=== PATIENT | female | born 1955 | race Caucasian/White ===

== ENCOUNTER 2017-11-13 15:56 | Emergency (ER) | payer OTHER ==
--- OUTSIDE RECORDS SUMMARY | 2017-11-13 15:59 | XMS REPORT | Clinical Summary ---
:1955 Author Organization [facility] Address [address] [place] [address] Care Team Providers Name Role Phone Asked, No Pcp Primary Care Provider Unavailable Allergies Active Allergy Reactions Severity Noted Date Comments Codeine Hives 09/08/2017 Sulfa (Sulfonamide Antibiotics) Hives 09/08/2017 Current Medications Prescription Sig. Disp. Refills Start Date End Date Status albuterol (PROAIR Inhale 2 puffs Active HFA,PROVENTIL every 4 (four) HFA,VENTOLIN HFA) hours as needed 90 mcg/actuation for wheezing. inhaler azelastine-fluticas 1 spray by Each Active one (DYMISTA) Nare route 2 (two) 137-50 mcg/spray times a day. spray,non-aerosol fluticasone-vilante Inhale 1 Active rol (BREO ELLIPTA) inhalations daily. 100-25 mcg/dose blister with device powder for inhalation apixaban (ELIQUIS) Take 5 mg by mouth Active 5 mg tablet 2 (two) times a day. DULoxetine Take 60 mg by Active (CYMBALTA) 60 MG mouth 2 (two) capsule times a day. predniSONE Take 10 mg by Active (DELTASONE) 10 mg mouth 2 (two) tablet times a day. alendronate Take 70 mg by Active (FOSAMAX) 70 MG mouth every 7 tablet days. Take in the morning with a full glass of water on an empty stomach, do NOT take anything else by mouth or lie down for the next 30 min. triamterene-hydroch Take 1 tablet by Active lorothiazid mouth daily. (MAXZIDE-25) 37.5-25 mg per tablet doxepin (SINEquan) Take 10 mg by Active 10 MG capsule mouth nightly. promethazine Take by mouth 4 Active (PHENERGAN) 6.25 (four) times a day mg/5 mL syrup as needed for nausea or vomiting. atorvastatin Take 10 mg by Active (LIPITOR) 10 MG mouth daily. tablet metFORMIN Take 500 mg by Active (GLUCOPHAGE) 500 mg mouth 2 (two) tablet times a day with meals. trimethoprim Take 100 mg by Active (TRIMPEX) 100 mg mouth daily. tablet sitaGLIPtin Take 25 mg by Active (JANUVIA) 25 MG mouth daily. tablet umeclidinium Inhale 62.5 mcg Active (INCRUSE ELLIPTA) daily. 62.5 mcg/actuation blister with device amIODarone Take 1 tablet (200 60 tablet 0 09/09/2017 10/09/2017 (PACERONE) 200 MG mg total) by mouth tablet 2 (two) times a day for 30 days. Active Problems Not on file Encounters Date Type Specialty Care Team Description 09/09/2017 Hospital Encounter Procedural Josesito Bashir Atypical atrial Cardiology MD jessica Baker 09/09/2017 Documentation Procedural [facility], Cardiology BILLIE Allen 09/09/2017 Anesthesia Event Procedural Myranda Andujar Cardiology 09/09/2017 Procedure Pass Procedural Cardiology 09/09/2017 Surgery Procedural Josesito Bashir Ep ablation flubren Cardiology MD Olivia [[id number] (CPT)] 09/07/2017 Lab Lab Jacob Boo Atrial fibrillation, unspecified type ( Primary Dx); MD Erika Long-term (current) use of anticoagulants; Pre-operative laboratory examination after 11/12/2016 Social History Tobacco Use Types Packs/Day Years Used Date Never Smoker Smokeless Tobacco: Never Used Alcohol Use Drinks/Week oz/Week Comments No Sex Assigned at Date Recorded Not on file Last Filed Vital Signs Vital Sign Reading Time Taken Blood Pressure 139/73 09/09/2017 3:30 PM CDT Pulse 100 09/09/2017 3:30 PM CDT Temperature 36.7 C (98 F) 09/09/2017 11:45 AM CDT Respiratory Rate 27 09/09/2017 3:30 PM CDT Oxygen Saturation 100% 09/09/2017 3:30 PM CDT Inhaled Oxygen Concentration - - Weight 75.3 kg (166 lb) 09/09/2017 6:32 AM CDT Height 162.6 cm (5' 4") 09/09/2017 6:32 AM CDT Body Mass Index 28.49 09/09/2017 6:32 AM CDT Plan of Treatment Health Maintenance Due Date Last Done Comments CERVICAL CANCER SCREENING 1974 BREAST CANCER SCREENING 08/23/2003 COLON CANCER SCREENING 08/23/2003 SHINGRIX VACCINE (#1) 08/23/2003 ZOSTER VACCINE 2013 INFLUENZA VACCINE 09/09/2017 Procedures Procedure Name Priority Date/Time Associated Comments Diagnosis ECG 12-LEAD Routine 09/09/2017 1:05 Results for this PM CDT procedure are in the results section. POC GLUCOSE Routine 09/09/2017 11:16 Results for this AM CDT procedure are in the results section. EP ABLATION FLUTTER Routine 09/09/2017 10:26 Atypical atrial Results for this AM CDT flutter procedure are in the results section. TYPE AND SCREEN STAT 09/09/2017 7:30 Results for this AM CDT procedure are in the results section. POC GLUCOSE Routine 09/09/2017 6:41 Results for this AM CDT procedure are in the results section. ECG PRE/POST OP STAT 09/09/2017 6:37 Results for this AM CDT procedure are in the results section. ZZESTIMATED GFR STAT 09/07/2017 2:45 Results for this PM CDT procedure are in the results section. MAGNESIUM LEVEL STAT 09/07/2017 2:45 Atrial Results for this PM CDT fibrillation, procedure are in unspecified type the results Long-term (current) section. use of anticoagulants Pre-operative laboratory examination HC COMPLETE BLD COUNT STAT 09/07/2017 2:45 Atrial Results for this W/AUTO DIFF PM CDT fibrillation, procedure are in unspecified type the results Long-term (current) section. use of anticoagulants Pre-operative laboratory examination COMPREHENSIVE METABOLIC STAT 09/07/2017 2:45 Atrial Results for this PANEL PM CDT fibrillation, procedure are in unspecified type the results Long-term (current) section. use of anticoagulants Pre-operative laboratory examination PROTHROMBIN TIME WITH STAT 09/07/2017 2:45 Atrial Results for this INR PM CDT fibrillation, procedure are in unspecified type the results Long-term (current) section. use of anticoagulants Pre-operative laboratory examination PARTIAL THROMBOPLASTIN STAT 09/07/2017 2:45 Atrial Results for this TIME (PTT) PM CDT fibrillation, procedure are in unspecified type the results Long-term (current) section. use of anticoagulants Pre-operative laboratory examination after 11/12/2016 Results ECG 12 lead (09/09/2017 1:05 PM) Ventricular rate 91 [facility] Atrial rate 91 [facility] IA interval 130 [facility] QRSD interval 76 [facility] QT interval 344 [facility] QTC interval 423 [facility] P axis 1 47 [facility] QRS axis 1 35 [facility] T wave axis 130 [facility] EKG impression Normal sinus rhythm-Possible Left atrial enlargement-ST & T wave abnormality, consider anterolateral ischemia-Abnormal ECG-In automated comparison with ECG of 09-SEP-2017 06:37,-Sinus rhythm has rep [facility] MUSE laced Atrial flutter-Vent. rate has decreased BY97 BPM-Questionable change in QRS duration- Performing Organization Address [facility] [place] [facility] Phone Number [facility] MUSE [address] [place] [address] POC glucose (09/09/2017 11:16 AM)Only the most recent of2 resultswithin the time period is included. POC glucose 113 (H) 65 - 99 mg/dL [facility] DEPARTMENT OF PATHOLOGY Comment: AND GENOMIC MEDICINE [facility] Notified RN Meter ID: [id number] Embosser Operator: Kateh Marte Performing Organization Address City/[facility]/Zipcode Phone Number [facility] DEPARTMENT OF PATHOLOGY AND [address] [place] [address] [facility] Cv electrophysiology procedure (09/09/2017 10:26 AM) Narrative Performed At TITLE OF PROCEDURE: CUPID Ablation of the atrial flutter. PREOPERATIVE DIAGNOSIS: Atrial flutter. 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 PROCEDURES PERFORMED: 1.Monitored anesthesia care. 2.Inferior venacavogram. 3.Empiric ablation of the cavotricuspid isthmus. 4.Three dimensional intracardiac mapping. BRIEF HISTORY AND CLINICAL BACKGROUND: This is a 62-year-old woman who has an episodic history of tachy palpitations, I saw her 48 hours ago in my office, at which time, she had a heart rate of 180 beats per minute.This had the appearance of typical CTI dependent flutter, I recommended at admission, but she declined as she was not overtly symptomatic and stated that she would return for her ablation, which we scheduled for Thursday, just less than 48 hours from her office visit.An echocardiogram performed at that time in my office revealed hyperdynamic ejection fraction, hence I allowed to leave the office and return.She returns now for ablation. Earlier this morning, she was in the [place] [address] preop area and was in atrial flutter at a similar heart rate, but presently, as she comes into the EP lab, she is in sinus rhythm.We will perform an empiric CTI ablation. PROCEDURE: The patient was taken to the EP lab in a fasting nonsedated drug-free state. Informed consent had been obtained and reconfirmed.Monitored anesthesia care was provided.The right groin was prepped and draped in usual sterile fashion. Access to the right femoral vein was achieved.A soft tip J-wire was advanced, but would not pass through the Bird's nest filter in the inferior vena cava. Subsequently, a 5-Maltese sheath was advanced into the proximal femoral vein and through the sheath, a 4-Maltese multipurpose catheter was advanced and placed just distal to the Bird's nest filter and inferior venacavogram was performed showing a tortuous channel through the IVC filter. Consequently, the J-wire was removed and a Glidewire was then advanced through the Bird's nest filter, taking care not to disturb this; over this Glidewire, a medium curve Agilis deflectable tip sheath was advanced.During advancement of the sheath, observation was carefully was made of the Bird's nest filter and it did not budge or move whatsoever; however, it was my judgement given the findings on the venogram that additional catheter placement would be risky in terms of dislodgement of the filter.Consequently, a simplified ablation procedure was planned. Through the Agilis sheath, a flexibility open irrigated radiofrequency ablation catheter was advanced and the ventricular and caval aspect of the CTI were mapped and ablation drag lesions were applied from the ventricular aspect to the caval aspect, moving the ablation catheter, small amount each time when the electrogram underneath the catheter was less than 0.3 mV.The patient's CTI had the appearance of a tall ridge (10-gallon hat type).On the posterior aspect of the peak of the ridge, there was a dense tissue with large electrogram size and it took some time to ablate this. The ablation line was remeasured and there were no areas of electrogram size greater than 0.3 mV.At this point, waiting period was started, the ablation line was reassessed and again from the ventricular to the caval aspect, all ablation sites, which were contagious, had electrogram size less than 0.3 mV. At this point, catheter and sheath were removed under fluoroscopy ensuring that the Bird's nest filter did not move.Hemostasis was applied. COMPLICATIONS: None. FINDINGS: 1.The baseline rhythm was sinus rhythm, but she had had what appears to be typical CTI dependent flutter earlier today and in the office. 2.Successful empiric ablation of the CTI as guided by electrogram size. RECOMMENDATIONS: 1.Discharge to home in 4 hours. 2.Resume oral anticoagulation. 3.Monitor for clinical recurrences. 4.Short term oral amiodarone Performing Organization Address [facility] Phone Number [facility] [address] [place] [address] Type and screen (09/09/2017 7:30 AM) ABO grouping O [facility] DEPARTMENT OF PATHOLOGY AND GENOMIC MEDICINE Rh type NEG [facility] DEPARTMENT OF PATHOLOGY AND GENOMIC MEDICINE Antibody screen (gel) NEG [facility] DEPARTMENT OF PATHOLOGY AND GENOMIC MEDICINE Specimen Blood Performing Organization Address [facility] Phone Number [facility] DEPARTMENT OF PATHOLOGY AND [address] [place] [address] [facility] ECG Pre/Post Op (09/09/2017 6:37 AM) Ventricular rate 188 [facility] Atrial rate 188 [facility] IA interval 88 [facility] QRSD interval 140 [facility] QT interval 232 [facility] QTC interval 410 [facility] P axis 1 264 [facility] QRS axis 1 30 [facility] T wave axis 265 [facility]USE EKG impression Atrial flutter with 2:1 AV [facility] MUSE conduction-Nonspecific intraventricular block-Nonspecific T wave abnormality-Abnormal ECG-No previous ECGs available- Performing Organization Address [facility] Phone Number [facility] [address] [place] [address] Estimated GFR (09/07/2017 2:45 PM) GFR Non Af Amer 50 (A) mL/min/1.73 m2 [facility] DEPARTMENT OF PATHOLOGY AND [facility] GFR Af Amer 61 mL/min/1.73 m2 [facility] DEPARTMENT OF Comment: PATHOLOGY AND GENOMIC Chronic kidney disease: <60 mL/min/1.73m2 MEDICINE Kidney failure: <15 mL/min/1.73m2 The estimated GFR is calculated from the IDMS-traceable Modification of Diet in Renal Disease Equation. The accuracy of the calculation is poor when the creatinine is normal. Calculated values >90 mL/min/1.73m2 are not reported. This equation has not been validated in children (<18 years), women, the elderly (>70 years), or ethnic groups other than Caucasians and Americans. Specimen Plasma specimen Performing Organization Address City/[facility] Phone Number [facility] DEPARTMENT OF PATHOLOGY AND [address] [place] [address] Partial thromboplastin time, activated (09/07/2017 2:45 PM) PTT 30.8 23.0 - 36.0 sec [facility] DEPARTMENT OF PATHOLOGY Comment: AND [facility] PTT therapeutic range for unfractionated heparin is 61.0-112.0 seconds which corresponds to Anti-Xa 0.3-0.7 U/ml. Specimen Blood Performing Organization Address City/[facility] Phone Number [facility] DEPARTMENT OF PATHOLOGY AND [address] [place] [id number] [facility] Prothrombin time with INR (09/07/2017 2:45 PM) Prothrombin time 15.5 (H) 12.0 - 15.0 sec [facility] DEPARTMENT OF PATHOLOGY AND [employer] MEDICINE INR 1.2 [facility] DEPARTMENT OF Comment: PATHOLOGY AND GENOMIC The International Normalized Ratio (INR) is a therapeutic MEDICINE monitoring tool for patients who are stable on oral anticoagulant therapy. An INR of 2.0-3.0 is suggested for deep vein thrombosis/pulmonary embolism. Specimen Blood Performing Organization Address City/[facility] Phone Number [facility] DEPARTMENT OF PATHOLOGY AND [address] [place] [phone] [facility] CBC with platelet and differential (09/07/2017 2:45 PM) WBC 17.38 (H) 4.50 - 11.00 k/uL [facility] DEPARTMENT OF PATHOLOGY AND GENOMIC MEDICINE RBC 5.95 (H) 4.20 - 5.50 m/uL [facility] DEPARTMENT OF PATHOLOGY AND GENOMIC MEDICINE HGB 14.2 12.0 - 16.0 g/dL [facility] DEPARTMENT OF PATHOLOGY AND GENOMIC MEDICINE HCT 48.0 (H) 37.0 - 47.0 % [facility] DEPARTMENT OF PATHOLOGY AND GENOMIC MEDICINE MCV 80.7 (L) 82.0 - 100.0 fL [facility] DEPARTMENT OF PATHOLOGY AND GENOMIC MEDICINE MCH 23.9 (L) 27.0 - 34.0 pg [facility] DEPARTMENT OF PATHOLOGY AND GENOMIC MEDICINE MCHC 29.6 (L) 31.0 - 37.0 g/dL [facility] DEPARTMENT OF PATHOLOGY AND GENOMIC MEDICINE RDW - SD 48.2 37.0 - 55.0 fL [facility] DEPARTMENT OF PATHOLOGY AND GENOMIC MEDICINE MPV 11.5 8.8 - 13.2 fL [facility] DEPARTMENT OF PATHOLOGY AND GENOMIC MEDICINE Platelet count 353 150 - 400 k/uL [facility] DEPARTMENT OF PATHOLOGY AND GENOMIC MEDICINE Nucleated RBC 0.00 /100 WBC [facility] DEPARTMENT OF PATHOLOGY AND GENOMIC MEDICINE Neutrophils 81.7 (H) 39.0 - 69.0 % [facility] DEPARTMENT OF PATHOLOGY AND GENOMIC MEDICINE Lymphocytes 11.4 (L) 25.0 - 45.0 % [facility] DEPARTMENT OF PATHOLOGY AND GENOMIC MEDICINE Monocytes 5.0 0.0 - 10.0 % [facility] DEPARTMENT OF PATHOLOGY AND GENOMIC MEDICINE Eosinophils 0.9 0.0 - 5.0 % [facility] DEPARTMENT OF PATHOLOGY AND GENOMIC MEDICINE Basophils 0.5 0.0 - 1.0 % [facility] DEPARTMENT OF PATHOLOGY AND GENOMIC MEDICINE Immature granulocytes 0.5Comment: 0.0 - 1.0 % [facility] DEPARTMENT OF "Immature PATHOLOGY AND GENOMIC granulocytes" MEDICINE (promyelocytes, myelocytes, metamyelocytes) Specimen Blood Performing Organization Address City/[facility]/Zipcode Phone Number [facility] DEPARTMENT OF PATHOLOGY AND [address] [place] [phone] GENOMIC MEDICINE Magnesium level (09/07/2017 2:45 PM) Magnesium 1.8 1.6 - 2.4 mg/dL [facility] DEPARTMENT OF PATHOLOGY AND GENOMIC MEDICINE Specimen Plasma specimen Performing Organization Address City/[facility] Phone Number [facility] DEPARTMENT OF PATHOLOGY AND [address] [place] [phone] [facility] Comprehensive metabolic panel (09/07/2017 2:45 PM) Sodium 140 135 - 148 mEq/L [facility] DEPARTMENT OF PATHOLOGY AND GENOMIC MEDICINE Potassium 4.8 3.5 - 5.0 mEq/L [facility] DEPARTMENT OF PATHOLOGY AND GENOMIC MEDICINE Chloride 96 (L) 98 - 112 mEq/L [facility] DEPARTMENT OF PATHOLOGY AND GENOMIC MEDICINE CO2 27 24 - 31 mEq/L [facility] DEPARTMENT OF PATHOLOGY AND GENOMIC MEDICINE Anion gap 17@ANIO (H) 7 - 15 mEq/L [facility] DEPARTMENT OF PATHOLOGY AND GENOMIC MEDICINE BUN 29 (H) 8 - 23 mg/dL [facility] DEPARTMENT OF PATHOLOGY AND GENOMIC MEDICINE Creatinine 1.1 (H) 0.5 - 0.9 mg/dL [facility] DEPARTMENT OF PATHOLOGY AND GENOMIC MEDICINE Glucose 181 (H) 65 - 99 mg/dL [facility] DEPARTMENT OF PATHOLOGY AND GENOMIC MEDICINE Calcium 11.1 (H) 8.8 - 10.2 mg/dL [facility] DEPARTMENT OF PATHOLOGY AND GENOMIC MEDICINE Protein 7.8 6.3 - 8.3 g/dL [facility] DEPARTMENT OF Comment: PATHOLOGY AND GENOMIC [place] 4.6-7.0 g/dL MEDICINE 1 week 4.4-7.6 g/dL 7 months-1year5.1-7.3 g/dL 1-2 years5.6-7.5 g/dL >3 years6.0-8.0 g/dL 18-150 6.3-8.3 g/dL Albumin 3.8 3.5 - 5.0 g/dL [facility] DEPARTMENT OF PATHOLOGY AND GENOMIC MEDICINE A/G ratio 1.0 0.7 - 3.8 [facility] DEPARTMENT OF PATHOLOGY AND GENOMIC MEDICINE Alkaline phosphatase 96 35 - 104 U/L [facility] DEPARTMENT OF PATHOLOGY AND GENOMIC MEDICINE AST 19 10 - 35 U/L [facility] DEPARTMENT OF PATHOLOGY AND GENOMIC MEDICINE ALT 20 5 - 50 U/L [facility] DEPARTMENT OF PATHOLOGY AND GENOMIC MEDICINE Total bilirubin 0.4 0.0 - 1.2 mg/dL [facility] DEPARTMENT OF PATHOLOGY AND GENOMIC MEDICINE Specimen Plasma specimen Performing Organization Address City/State/Zipcode Phone Number [facility] DEPARTMENT OF PATHOLOGY AND [address] [place] [address] GENOMIC MEDICINE after 11/12/2016 Insurance Payer Benefit Plan / Group Subscriber ID Type Phone Address MEDICARE MEDICARE PART A AND B xxxxxxxxxx Medicare [place], [place] MEDICAID MEDICAID xxxxxxxxx Medicaid
--- OUTSIDE RECORDS SUMMARY | 2017-11-13 16:00 | XMS REPORT ---
:1955 Author Organization [employer] Care Team Providers Name Role Phone Chase Courtney Provider Role Unavailable Allergies No Known Allergies Problems Problem Type Condition Code Onset Dates Condition Status Problem Atrial fibrillation with RVR I48.91 Active Problem Phlebitis of deep femoral vein, I80.10 Active unspecified laterality Problem S/P insertion of inferior vena Z95.828 Active caval filter Problem Port-a-cath in place Z95.828 Active Problem Colon polyp K63.5 Active Problem Spinal stenosis of lumbosacral M48.07 Active region Problem Chronic obstructive pulmonary J44.9 Active disease Problem History of blood transfusion Z92.89 Active Problem Renal calculus N20.0 Active Problem Abdominal aortic aneurysm I71.4 Active Problem Benign essential hypertension I10 Active Problem Nausea alone R11.0 Active Problem Atrial fibrillation I48.91 Active Problem GERD without esophagitis K21.9 Active Problem Multinodular goiter (nontoxic) E04.2 Active Problem Vitamin D deficiency E55.9 Active Problem intermediate frame tender current use of systemic Z79.52 Active steroids Problem Bipolar disorder F31.9 Active Problem Diabetes mellitus type 2, E11.9 Active uncontrolled, without complications Problem Insomnia G47.00 Active Problem Osteopenia M85.80 Active Problem Splenomegaly R16.1 Active Problem Subclinical hyperthyroidism E05.90 Active Problem Non-pressure chronic ulcer of skin L98.499 Active of other sites with unspecified severity Problem Ventral hernia without obstruction K43.9 Active or gangrene Problem History of CVA (cerebrovascular Z86.73 Active accident) without residual deficits Problem Iron deficiency anemia secondary to D50.0 Active blood loss (chronic) Problem Solitary pulmonary nodule R91.1 Active Problem History of deep vein thrombosis Z86.718 Active Medications Medication Code Code Instructions Start End Status Dosage System Date Date True Metrix [facility] [id number] - True metrix Apr 08, Active as directed Blood Glucose twice a day 2017 Test Results No Known Results Summary Purpose [employer] Submission
--- OUTSIDE RECORDS SUMMARY | 2017-11-13 16:00 | XMS REPORT ---
[...] Problem Vitamin D deficiency E55.9 Active Problem care home current use of systemic Z79.52 Active steroids [...] Start End Status Dosage System Date Date Atorvastatin [facility] [id number] 10 MG Orally Active 1 tablet Calcium Once a day Results No Known Results Summary Purpose Last [employer] Submission
--- OUTSIDE RECORDS SUMMARY | 2017-11-13 16:00 | XMS REPORT ---
[...] Problem Vitamin D deficiency E55.9 Active Problem longterm current use of systemic Z79.52 Active steroids [...] End Status Dosage System Date Date Atorvastatin [facility] [id number] 10 MG Orally Active 1 tablet Calcium Once a day Results No Known Results Summary Purpose [employer] Submission
--- OUTSIDE RECORDS SUMMARY | 2017-11-13 16:00 | XMS REPORT ---
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
--- OUTSIDE RECORDS SUMMARY | 2017-11-13 16:00 | XMS REPORT ---
[...] Problem Vitamin D deficiency E55.9 Active Problem [facility] current use of systemic Z79.52 Active steroids [...] of deep vein thrombosis Z86.718 Active Medications No Known Medications Results No Known Results Summary Purpose [employer] Submission
--- OUTSIDE RECORDS SUMMARY | 2017-11-13 16:00 | XMS REPORT ---
[...] Problem Vitamin D deficiency E55.9 Active Problem [facility] current use of systemic Z79.52 Active steroids [...]
--- OUTSIDE RECORDS SUMMARY | 2017-11-13 16:00 | XMS REPORT ---
:1955 Author Organization e[employer]Works Care Team Providers Name Role Phone Chase Courtney Provider Role Unavailable Allergies No Known Allergies Problems Problem Type Condition Code Onset Dates Condition Status Assessment Atrial fibrillation with RVR I48.91 Active Problem Atrial fibrillation with RVR I48.91 Active [...] Problem Vitamin D deficiency E55.9 Active Problem FPC current use of systemic Z79.52 Active steroids [...] Start End Status Dosage System Date Date Promethazine HCl ND 42133794520 6.25 MG/5ML Active 10 ml as Orally every 6 needed hrs Eliquis ND 32631449424 5 MG Orally Active not defined True Metrix [facility] 50123832506 - True metrix Apr 08, Active as directed Blood Glucose twice a day 2018 Test Lyrica [facility] 86311342935 50 MG Orally Active 1 capsule Twice a day Ambien [facility] 11479022413 5 MG Orally Active 1 tablet at Once a day bedtime Carvedilol [facility] 42830639391 3.125 MG Orally Mar 19, Active as directed take twice a 2017 day Prednisone ND 35946753747 10 MG Orally Active 1 tablet Twice a day Multaq [facility] 65754109817 400 MG Orally Active 1 tablet Twice a day with meals Atorvastatin [facility] 48304201740 10 MG Orally Active 1 tablet Calcium Once a day Ventolin HFA [facility] 81800439525 108 (90 Base) Active 2 puffs as MCG/ACT needed Inhalation every 6 hrs Januvia [facility] 76655581645 25 MG Orally Active not defined Pantoprazole [facility] 99146667460 40 MG Orally Active 1 tablet Sodium Once a day Albuterol [facility] 53314831397 (2.5 MG/3ML) Active 3 ml as Sulfate 0.083% needed Inhalation Three times a day Vitamin D3 [facility] 73000760932 2000 UNIT Active 1 capsule Orally Once a day Duloxetine HCl [facility] 69366423746 60 MG Orally Active 1 capsule Once a day Fosamax [facility] 02385769355 70 MG Orally Active 1 tablet Breo Ellipta [facility] 26845374238 100-25 MCG/INH Active 1 puff Inhalation Once a day Glucophage XR [facility] 12770493405 500 MG Orally Active 1 tablet Twice a day with evening meal Results No Known Results Summary Purpose [employer]Clinical[employer] Submission
--- OUTSIDE RECORDS SUMMARY | 2017-11-13 16:00 | XMS REPORT ---
[...] Problem Vitamin D deficiency E55.9 Active Problem alf current use of systemic Z79.52 Active steroids [...]
--- OUTSIDE RECORDS SUMMARY | 2017-11-13 16:00 | XMS REPORT ---
[...] Vitamin D deficiency E55.9 Active Problem intermediate manager current use of systemic Z79.52 Active steroids [...] vein thrombosis Z86.718 Active Medications Medication Code System Code Instructions Start Date End Date Status Dosage Eliquis [facility] 57968888266 5 MG Orally twice Active 1 tablet daily Results No Known Results Summary Purpose [employer] Submission
[2017-11-13] MEDS ORDERED: HYDROCODONE/APAP 5/325 MG TAB ONE (16:47)
[2017-11-13 16:50] LABS: Absolute Lymphocytes (CBC) 0.5 K/uL (0.7-4.9); Absolute Neutrophil 15.9 K/uL (1.8-8.0); Basophils % 0.1 % (0-1.3); Eosinophils % 0.3 % (0-4.4); Hematocrit 37.7 % (36.0-45.0); Lymphocytes % 2.7 % (15.3-44.8); MCH 24.2 pg (27.0-35.0); MCV 76.6 fL (80-100); MPV 9.9 fL (7.6-11.3); Monocytes % 5.5 % (3.3-12.3); RBC Red Blood Cell Count 4.92 M/uL (3.86-4.86)
--- NOTE | 2017-11-13 16:53 | RAD REPORT ---
EXAM DESCRIPTION: RAD - Ankle Left 3 View - 11/13/2017 4:45 pm CLINICAL HISTORY: SWELLING COMPARISON: No comparisons FINDINGS: Prominent soft tissue swelling is seen along lateral malleolus. Heavy atherosclerosis is e vident. No acute fracture or dislocation suspected.
[2017-11-13 17:09] LABS: Albumin 3.4 g/dL (3.4-5.0); Bilirubin Total 0.6 mg/dL (0.2-1.0); Potassium 3.7 mmol/L (3.5-5.1); Protein, Total 6.7 g/dL (6.4-8.2)
--- NOTE | 2017-11-13 17:41 | RAD REPORT ---
EXAM DESCRIPTION: US - Extremity Venous Uni Ltd - 11/13/2017 5:32 pm CLINICAL HISTORY: SWELLING Leg swelling and edema. COMPARISON: EXT VENOUS UNI LTD dated 04/15/2015 FINDINGS: Left lower extremity venous system was interrogated with Doppler technique. Partial compre ssibility with thrombus is visualized in the common femoral vein, greater saphenous vein and poplitea l vein compatible with SVT and DVT. IMPRESSION: Positive for left lower extremity DVT as detailed. SVT is also present within the greate r saphenous vein.
--- NOTE | 2017-11-13 18:30 | RAD REPORT ---
EXAM DESCRIPTION: US - Lower Extremity Artery Uni Ltd - 11/13/2017 6:22 pm CLINICAL HISTORY: SWELLING Pain COMPARISON: CTANGIO LOWER EXT dated 05/15/2012 FINDINGS: Grayscale, color, power and spectral Doppler assessment of the left lower extremity arteri al system was performed. Triphasic waveforms are seen involving the common femoral artery to the level of the popliteal artery . Posterior tibial artery is biphasic. Dorsalis pedis artery is mildly blunted and monophasic. Mild atherosclerotic plaquing is seen without occlusion or severe stenosis. IMPRESSION: Mild distal left lower extremity peripheral vascular disease noted.
[2017-11-13] MEDS ORDERED: DOXYCYCLINE 100 MG CAP PO ONE (18:37)
[2017-11-13] MEDS ORDERED: CLINDAMYCIN 600MG/D5W 600 MG/50 ML BAG IV ONE (18:37)
--- NOTE | 2017-11-13 19:23 | EDPHYS ---
Physician Documentation [facility] Name: Christa Vidal Age: 62 yrs Sex: Female : 1955 Arrival Date: 11/13/2017 Time: 15:58 Bed 5 Private MD: Chase Courtney ED Physician Domingo Avitia HPI: 11/13 16:17 This 62 yrs old Female presents to ER via Wheelchair with complaints of Feet jmm Swelling. 16:17 The complaints affect the lateral aspect of left calf, left lateral ankle, lateral jmm aspect of left foot, left calf, left Achilles, left heel, medial aspect of left knee, medial aspect of left calf, left medial ankle and medial aspect of left foot. Onset: The symptoms/episode began/occurred gradually, 1 day(s) ago. This is a 62 year old female with a history of AAA, DVT, COPD, DM, that presents to the ED with left lower leg pain and swelling, worsening since last night. Patient states an area of redness behind her left foot has increased in size. Denies injury. . Historical: - Allergies: 16:06 Codeine; aj1 16:06 Sulfa (Sulfonamide Antibiotics); aj1 16:06 Ibuprofen; aj1 - Home Meds: 16:06 Eliquis 5 mg oral tab 1 tab 2 times per day [Active]; amiodarone 200 mg Oral tab 2 aj1 times per day [Active]; albuterol sulfate 2.5 mg /3 mL (0.083 %) Inhl nebu 3 mL 2 times per day [Active]; alendronate sodium-cholecalciferol(vitamin D3) 70 mg Oral once wkly [Active]; atorvastatin 10 mg Oral tab 1 tab once daily [Active]; Breo Ellipta 100-25 mcg/dose inhalation dsdv 1 puff once daily [Active]; duloxetine 60 mg Oral cpDR [Active]; Incruse Ellipta 62.5 mcg/actuation inhalation dsdv 1 puff once daily [Active]; Januvia 25 mg Oral tab daily [Active]; lutein-zeaxanthin Oral [Active]; metformin 500 mg Oral Tb24 once daily [Active]; prednisone 10 mg Oral tab 1 tab 2 times per day [Active]; promethazine 6.25 mg/5 mL Oral syrp 5 mL 2 times per day [Active]; Restasis 0.05 % ophthalmic dpet 1 drop 2 times per day [Active]; trimethoprim 100 mg Oral tab 1 tab once daily [Active]; Ventolin HFA 90 mcg/actuation Nebulizer HFAA 2 puffs every 6 hours [Active]; zolpidem 5 mg Oral tab 1 tab once daily [Active]; - PMHx: 16:06 AAA; COPD; Degenerative disc disease; Depression; Diabetes - NIDDM; GERD; Hernia; aj1 Hypertension; Osteoporosis; - Immunization history:: Flu vaccine is not up to date. - Social history:: Smoking status: Patient/guardian denies using tobacco. - Ebola Screening: : Patient denies travel to an Ebola-affected area in the 21 days before illness onset. ROS: 16:17 Constitutional: Negative for fever, chills, and weight loss, Cardiovascular: Negative jmm for chest pain, palpitations, and edema, Respiratory: Negative for shortness of breath, cough, wheezing, and pleuritic chest pain, Abdomen/GI: Negative for abdominal pain, nausea, vomiting, diarrhea, and constipation. 16:17 MS/extremity: Positive for injury or acute deformity, pain, swelling. 16:17 Skin: Positive for swelling, erythema. 16:17 All other systems are negative. Exam: 16:17 Head/Face: atraumatic. Chest/axilla: Normal chest wall appearance and motion. jmm Cardiovascular: Regular rate and rhythm. No edema appreciated Respiratory: Normal respirations, no respiratory distress appreciated 16:17 Constitutional: The patient appears in no acute distress, alert, awake. 16:17 Musculoskeletal/extremity: FROM appreciated to the left ankle. 16:17 Skin: erythema noted to the left heel, TTP, compartments are soft. 16:17 Neuro: Orientation: is normal, Mentation: is normal, Memory: is normal. 16:17 Psych: Behavior/mood is pleasant, cooperative. Vital Signs: 16:06 BP 122 / 63; Pulse 83; Resp 18; Temp 98.4; Pulse Ox 99% on R/A; Weight 76.66 kg (R); aj1 Height 5 ft. 4 in. (162.56 cm) (R); Pain 10/10; 17:26 BP 118 / 71; Pulse 76; Resp 18; Pulse Ox 98% on R/A; ph 18:39 BP 116 / 66; Pulse 79; Resp 18; Temp 98.3; Pulse Ox 98% on R/A; ph 19:14 BP 116 / 62; Pulse 77; Resp 18; Pulse Ox 96% on R/A; tl2 16:06 Body Mass Index 29.01 (76.66 kg, 162.56 cm) aj1 MDM: 16:17 Patient medically screened. [facility] 19:21 Data reviewed: vital signs, nurses notes. Counseling: I had a detailed discussion with [facility] the patient and/or guardian regarding: the historical points, exam findings, and any diagnostic results supporting the discharge/admit diagnosis, radiology results, the need for outpatient follow up, to return to the emergency department if symptoms worsen or persist or if there are any questions or concerns that arise at home. 19:21 ED course: Patient is alert and non toxic in appearance in the ED. Symptoms appear to jmm be due to cellulitis. Patient given oral and IV abx in the ED. Patient is currently on eliquis and has IVC filter. Patient given strict return precautions. Patient understood and agrees with the plan of care. . 11/13 16:19 Order name: CBC with Diff; Complete Time: 17:06 [facility] 11/13 16:19 Order name: CMP; Complete Time: 17:13 [facility] 11/13 16:19 Order name: US Extremity Venous Unilateral Ltd; Complete Time: 17:54 [facility] 11/13 16:19 Order name: Lower Extremity Artery Uni Ltd; Complete Time: 18:31 [facility] 11/13 16:19 Order name: Ankle Left 3 View XRAY; Complete Time: 17:06 [facility] 11/13 16:29 Order name: Procalcitonin; Complete Time: 17:18 [facility] 11/13 16:19 Order name: Saline Lock; Complete Time: 16:43 [facility] Administered Medications: 16:43 Drug: [place] 5 mg-325 mg 1 tabs Route: PO; ph 18:38 Follow up: Response: No adverse reaction; Pain is decreased ph 18:38 Drug: Clindamycin 600 mg Route: IVPB; Infused Over: 30 mins; Site: right forearm; ph 19:04 Follow up: Response: No adverse reaction; IV Status: Completed infusion ph 18:38 Drug: Doxycycline 100 mg Route: PO; ph 19:04 Follow up: Response: No adverse reaction ph Disposition: 11/14 10:23 Co-signature as Attending Physician, Domingo Avitia MD. rn Disposition: 11/13/17 19:22 Discharged to Home. Impression: Cellulitis. - Condition is Stable. - Discharge Instructions: Cellulitis, Adult. - Prescriptions for Clindamycin HCl 300 mg Oral Capsule - take 1 capsule by ORAL route every 6 hours for 10 days; 40 capsule. Ultram 50 mg Oral Tablet - take 1 tablet by ORAL route every 6 hours As needed; 20 tablet. Doxycycline Hyclate 100 mg Oral Tablet - take 1 tablet by ORAL route every 12 hours; 20 tablet. - Medication Reconciliation Form, Thank You Letter, Antibiotic Education, Prescription Opioid Use form. - Follow up: Chase Courtney DO; When: 1 - 2 days; Reason: Recheck today's complaints, Continuance of care, Re-evaluation by your physician. - Notes: Please follow up with your primary care provider in 1 to 2 days for reevaluation. please return to the ED if you develop increased pain, increased swelling, fever, or any other concerning symptoms. Signatures: Dispatcher [employer] EDMS Haritha Clement RN RN aj1 Florin Rodriguez PA PA jmm Nieto, Roman, MD MD rn Hall, Patricia, RN RN ph Antunez, Elena, RN RN ea Corrections: (The following items were deleted from the chart) 11/13 19:54 19:22 11/13/2017 19:22 Discharged to Home. Impression: Cellulitis. Condition is Stable. ea Forms are Medication Reconciliation Form, Thank You Letter, Antibiotic Education, Prescription Opioid Use. Follow up: Chase Courtney; When: 1 - 2 days; Reason: Recheck today's complaints, Continuance of care, Re-evaluation by your physician. [facility]
--- NOTE | 2017-11-13 19:23 | ER ---
Nurse's Notes [facility] Name: Christa Vidal Age: 62 yrs Sex: Female : 1955 Arrival Date: 11/13/2017 Time: 15:58 Bed 5 Private MD: Chase Courtney Diagnosis: Cellulitis Presentation: 11/13 16:03 Presenting complaint: Patient states: Redness, pain and swelling to the left ankle for aj1 the past 2 days. Denies fever. Patient reports that she has been unable to sleep due to the pain, and she is unable to bear weight on the left ankle because of the pain. Transition of care: patient was not received from another setting of care. Onset of symptoms was November 11, 2017. Risk Assessment: Do you want to hurt yourself or someone else? Patient reports no desire to harm self or others. Initial Sepsis Screen: Does the patient meet any 2 criteria? No. Patient's initial sepsis screen is negative. Does the patient have a suspected source of infection? Yes: Skin breakdown/wound. Care prior to arrival: None. 16:03 Method Of Arrival: Wheelchair aj1 16:03 Acuity: NATHANIEL 3 aj1 Triage Assessment: 16:06 General: Appears in no apparent distress. uncomfortable, Behavior is calm, cooperative, aj1 appropriate for age. Pain: Complains of pain in left Achilles Pain currently is 10 out of 10 on a pain scale. Neuro: Level of Consciousness is awake, alert, obeys commands. Cardiovascular: Patient's skin is warm and dry. Respiratory: Airway is patent Respiratory effort is even, unlabored, Respiratory pattern is regular, symmetrical. Historical: - Allergies: 16:06 Codeine; aj1 16:06 Sulfa (Sulfonamide Antibiotics); aj1 16:06 Ibuprofen; aj1 - Home Meds: 16:06 Eliquis 5 mg oral tab 1 tab 2 times per day [Active]; amiodarone 200 mg Oral tab 2 aj1 times per day [Active]; albuterol sulfate 2.5 mg /3 mL (0.083 %) Inhl nebu 3 mL 2 times per day [Active]; alendronate sodium-cholecalciferol(vitamin D3) 70 mg Oral once wkly [Active]; atorvastatin 10 mg Oral tab 1 tab once daily [Active]; Breo Ellipta 100-25 mcg/dose inhalation dsdv 1 puff once daily [Active]; duloxetine 60 mg Oral cpDR [Active]; Incruse Ellipta 62.5 mcg/actuation inhalation dsdv 1 puff once daily [Active]; Januvia 25 mg Oral tab daily [Active]; lutein-zeaxanthin Oral [Active]; metformin 500 mg Oral Tb24 once daily [Active]; prednisone 10 mg Oral tab 1 tab 2 times per day [Active]; promethazine 6.25 mg/5 mL Oral syrp 5 mL 2 times per day [Active]; Restasis 0.05 % ophthalmic dpet 1 drop 2 times per day [Active]; trimethoprim 100 mg Oral tab 1 tab once daily [Active]; Ventolin HFA 90 mcg/actuation Nebulizer HFAA 2 puffs every 6 hours [Active]; zolpidem 5 mg Oral tab 1 tab once daily [Active]; - PMHx: 16:06 AAA; COPD; Degenerative disc disease; Depression; Diabetes - NIDDM; GERD; Hernia; aj1 Hypertension; Osteoporosis; - Immunization history:: Flu vaccine is not up to date. - Social history:: Smoking status: Patient/guardian denies using tobacco. - Ebola Screening: : Patient denies travel to an Ebola-affected area in the 21 days before illness onset. Screenin:45 Abuse screen: Denies threats or abuse. Denies injuries from another. Nutritional ph screening: No deficits noted. Tuberculosis screening: No symptoms or risk factors identified. Fall Risk None identified. Assessment: 16:43 General: Appears in no apparent distress. comfortable, Behavior is calm, cooperative, ph appropriate for age, Denies fever. Pain: Complains of pain in left Achilles and left medial ankle. Neuro: Level of Consciousness is awake, alert, obeys commands, Oriented to person, place, time, situation. Cardiovascular: Capillary refill < 3 seconds in bilateral fingers Patient's skin is warm and dry. Pulses are palpable in right dorsalis pedis artery and left dorsalis pedis artery Edema is 2+ to left ankle and left foot. Respiratory: Airway is patent Respiratory effort is even, unlabored, Denies shortness of breath at rest. GI: No signs and/or symptoms were reported involving the gastrointestinal system. Patient currently denies diarrhea, nausea, vomiting. Derm: Skin is intact, Skin is pink, warm \T\ dry. Musculoskeletal: Circulation, motion, and sensation intact. Range of motion: intact in all extremities. 17:25 Reassessment: Patient appears in no apparent distress at this time. Patient and/or ph family updated on plan of care and expected duration. Pain level reassessed. Patient is alert, oriented x 3, equal unlabored respirations, skin warm/dry/pink. Pt resting quietly, awaiting radiology results. 18:20 Reassessment: Patient appears in no apparent distress at this time. Patient and/or ph family updated on plan of care and expected duration. Pain level reassessed. Patient is alert, oriented x 3, equal unlabored respirations, skin warm/dry/pink. Pt resting quietly, awaiting US results. 19:45 Reassessment: Patient and/or family updated on plan of care and expected duration. Pain ea level reassessed. Patient is alert, oriented x 3, equal unlabored respirations, skin warm/dry/pink. Discharge instructions given to patient, verbalized the understanding of instruction. Patient states feeling better. Vital Signs: 16:06 BP 122 / 63; Pulse 83; Resp 18; Temp 98.4; Pulse Ox 99% on R/A; Weight 76.66 kg (R); aj1 Height 5 ft. 4 in. (162.56 cm) (R); Pain 10/10; 17:26 BP 118 / 71; Pulse 76; Resp 18; Pulse Ox 98% on R/A; ph 18:39 BP 116 / 66; Pulse 79; Resp 18; Temp 98.3; Pulse Ox 98% on R/A; ph 19:14 BP 116 / 62; Pulse 77; Resp 18; Pulse Ox 96% on R/A; tl2 16:06 Body Mass Index 29.01 (76.66 kg, 162.56 cm) aj1 ED Course: 14:30 Inserted saline lock: 20 gauge in right forearm, using aseptic technique. Missed ph attempt(s): 22 gauge in right antecubital area. Bleeding controlled, band aid applied, catheter tip intact. 15:58 Patient arrived in ED. as 15:59 Chase Courtney DO is Private Physician. as 16:04 Triage completed. aj1 16:06 Arm band placed on Patient placed in an exam room. aj1 16:09 Gala Goncalves, RN is Primary Nurse. ph 16:10 Florin Rodriguez PA is PHCP. jmm 16:10 Domingo Avitia MD is Attending Physician. jmm 16:43 X-ray completed. Portable x-ray completed in exam room. Patient tolerated procedure az well. 16:46 Ankle Left 3 View XRAY In Process Unspecified. EDMS 16:46 Patient has correct armband on for positive identification. Bed in low position. Call ph light in reach. Side rails up X 1. Pulse ox on. NIBP on. Warm blanket given. 17:31 Ultrasound completed. Patient tolerated well. Notified PROCESS TREATER/WILI grey. cy 17:32 US Extremity Venous Unilateral Ltd In Process Unspecified. EDMS 18:15 US Lower Extremity Artery Uni Ltd In Process Unspecified. EDMS 19:22 Chase Courtney DO is Referral Physician. jmm 19:40 IV discontinued, intact, bleeding controlled, No redness/swelling at site. Pressure ea dressing applied. 19:45 No provider procedures requiring assistance completed. ea Administered Medications: 16:43 Drug: [place] 5 mg-325 mg 1 tabs Route: PO; ph 18:38 Follow up: Response: No adverse reaction; Pain is decreased ph 18:38 Drug: Clindamycin 600 mg Route: IVPB; Infused Over: 30 mins; Site: right forearm; ph 19:04 Follow up: Response: No adverse reaction; IV Status: Completed infusion ph 18:38 Drug: Doxycycline 100 mg Route: PO; ph 19:04 Follow up: Response: No adverse reaction ph Outcome: 19:22 Discharge ordered by MD. jmm 19:50 Discharged to home ambulatory. ea 19:50 Condition: good 19:50 Discharge instructions given to patient, Instructed on discharge instructions, follow up and referral plans. medication usage, Demonstrated understanding of instructions, follow-up care, medications, Prescriptions given X 3. 19:54 Patient left the ED. ea Signatures: Dispatcher [employer] EDMS Haritha Clement RN RN aj1 Florin Rodriguez PA PA jmm Martinez, Amelia as Hall, Patricia, RN RN Margaret Mcmahon RN RN tl2 Codi Welch RN RN ea Yong, Chheannith Violeta Palomino
[2017-11-13 20:01] VITALS: TEMP 98.3
[2017-11-13 20:02] VITALS: BP 116/62; O2SAT 96
== END 2017-11-13 19:54 | disposition home or self-care (01) ==
LOC: ER 15:56
DX: L03.116 Cellulitis of left lower limb (principal); E11.9 Type 2 diabetes mellitus without complications; I10 Essential (primary) hypertension; J44.9 Chronic obstructive pulmonary disease, unspecified; F32.9 Major depressive disorder, single episode, unspecified; Z88.2 Allergy status to sulfonamides; Z88.6 Allergy status to analgesic agent; Z88.5 Allergy status to narcotic agent
CPT/HCPCS: 36415; 80053; 84145; 85025; 93926; 93971; 96365; 99284

== ENCOUNTER 2018-01-30 14:00 | Emergency (ER) | payer OTHER ==
--- OUTSIDE RECORDS SUMMARY | 2018-01-30 14:03 | XMS REPORT | Clinical Summary ---
:1955 Author Organization [facility] Address [address] [place] [address] Care Team Providers Name Role Phone Asked, No Pcp Primary Care Provider Unavailable Allergies Active Allergy Reactions Severity Noted Date Comments Codeine Hives 09/08/2017 Sulfa (Sulfonamide Antibiotics) Hives 09/08/2017 Medications Medication Sig Dispensed Refills Start Date End Date Status albuterol (PROAIR Inhale 2 puffs 0 Active HFA,PROVENTIL every 4 (four) HFA,VENTOLIN HFA) hours as needed 90 mcg/actuation for wheezing. inhaler azelastine-fluticas 1 spray by Each 0 Active one (DYMISTA) Nare route 2 (two) 137-50 mcg/spray times a day. spray,non-aerosol fluticasone-vilante Inhale 1 0 Active rol (BREO ELLIPTA) inhalations daily. 100-25 mcg/dose blister with device powder for inhalation apixaban (ELIQUIS) Take 5 mg by mouth 0 Active 5 mg tablet 2 (two) times a day. DULoxetine Take 60 mg by 0 Active (CYMBALTA) 60 MG mouth 2 (two) capsule times a day. predniSONE Take 10 mg by 0 Active (DELTASONE) 10 mg mouth 2 (two) tablet times a day. alendronate Take 70 mg by 0 Active (FOSAMAX) 70 MG mouth every 7 tablet days. Take in the morning with a full glass of water on an empty stomach, do NOT take anything else by mouth or lie down for the next 30 min. triamterene-hydroch Take 1 tablet by 0 Active lorothiazid mouth daily. (MAXZIDE-25) 37.5-25 mg per tablet doxepin (SINEquan) Take 10 mg by 0 Active 10 MG capsule mouth nightly. promethazine Take by mouth 4 0 Active (PHENERGAN) 6.25 (four) times a day mg/5 mL syrup as needed for nausea or vomiting. atorvastatin Take 10 mg by 0 Active (LIPITOR) 10 MG mouth daily. tablet metFORMIN Take 500 mg by 0 Active (GLUCOPHAGE) 500 mg mouth 2 (two) tablet times a day with meals. trimethoprim Take 100 mg by 0 Active (TRIMPEX) 100 mg mouth daily. tablet sitaGLIPtin Take 25 mg by 0 Active (JANUVIA) 25 MG mouth daily. tablet umeclidinium Inhale 62.5 mcg 0 Active (INCRUSE ELLIPTA) daily. 62.5 mcg/actuation blister with device amIODarone Take 1 tablet (200 60 tablet 0 09/09/2017 10/09/2017 (PACERONE) 200 MG mg total) by mouth tablet 2 (two) times a day for 30 days. Active Problems Not on file Encounters Date Type Specialty Care Team Description 09/09/2017 Anesthesia Event Procedural Myranda Andujar Cardiology 09/09/2017 Surgery Procedural Josesito Bashir Ep [place] [[id number] (CPT)] 09/09/2017 Hospital Encounter Procedural Josesito Bashir Atypical atrial MD jessica Clark Jr. 09/09/2017 Documentation Procedural Kathe, Cardiology BILLIE Allen 09/07/2017 Lab Lab Jacob Boo Atrial fibrillation, unspecified type ( Primary Dx); MD Erika Long-term (current) use of anticoagulants; Pre-operative laboratory examination after 01/29/2017 Social History Tobacco Use Types Packs/Day Years Used Date Never Smoker Smokeless Tobacco: Never Used Alcohol Use Drinks/Week oz/Week Comments No Sex Assigned at Date Recorded Not on file Job Start Date Occupation Industry Not on file Not on file Not on file Travel History Travel Start Travel End No recent travel history available. Last Filed Vital Signs Vital Sign Reading [...] CANCER SCREENING 08/23/2003 COLON CANCER SCREENING 08/23/2003 SHINGLES VACCINES (1 of 2) 08/23/2003 INFLUENZA VACCINE 09/09/2017 Procedures Procedure Name Priority [...] use of anticoagulants Pre-operative laboratory examination after 01/29/2017 Results ECG 12 lead (09/09/2017 1:05 PM CDT) Ventricular rate 91 [facility] Atrial rate 91 [facility] PA interval 130 [facility] QRSD interval 76 [facility] QT interval 344 [facility] QTC interval 423 [facility] P axis 1 47 [facility] QRS axis 1 35 [facility] T wave axis 130 H MUSE EKG impression Normal sinus rhythm-Possible Left atrial enlargement-ST & T wave abnormality, consider anterolateral ischemia-Abnormal ECG-In automated comparison with ECG of 09-SEP-2017 06:37,-Sinus rhythm has rep [facility] M[facility] laced Atrial flutter-Vent. rate has decreased BY97 BPM-Questionable change in QRS duration- Performing Organization Address City/[facility]/[employer] Phone Number [facility] [address] [place] [address] POC glucose (09/09/2017 11:16 AM CDT)Only the most recent of2 resultswithin the time period is included. POC glucose 113 (H) 65 - 99 mg/dL [facility] DEPARTMENT OF PATHOLOGY Comment: AND GENOMIC MEDICINE [facility] Notified RN Meter ID: [id number] Cna: Kathe Ferguson [facility] Performing Organization Address City/[facility]/[employer] Phone Number [facility] DEPARTMENT OF PATHOLOGY AND [address] [place], [place] [phone] [facility] Cv electrophysiology procedure (09/09/2017 10:26 AM CDT) Narrative Performed At TITLE OF PROCEDURE: CUPID [...] Earlier this morning, she was in the [address] area and was in atrial flutter at [...] in the inferior vena cava. Subsequently, a 5-Tongan sheath was advanced into the proximal femoral vein and through the sheath, a 4-Tongan multipurpose catheter was advanced and placed just [...] 4.Short term oral amiodarone Performing Organization Address [facility]/[place] Phone Number [facility] [address] [place] [address] Type and screen (09/09/2017 7:30 AM CDT) ABO grouping O [facility] DEPARTMENT OF PATHOLOGY AND GENOMIC MEDICINE Rh type NEG [facility] DEPARTMENT OF PATHOLOGY AND GENOMIC MEDICINE Antibody screen (gel) NEG [facility] DEPARTMENT OF PATHOLOGY AND GENOMIC MEDICINE Specimen Blood Performing Organization Address [facility]/[employer] Phone Number [facility] DEPARTMENT OF PATHOLOGY AND [address] [place] [phone] GENOMIC MEDICINE ECG Pre/Post Op (09/09/2017 6:37 AM CDT) Ventricular rate 188 [facility] Atrial rate 188 [facility] PA interval 88 [facility] QRSD interval 140 [facility] QT interval 232 [facility] QTC interval 410 [facility] P axis 1 264 [facility] QRS axis 1 30 [facility] T wave axis 265 [facility] EKG impression Atrial flutter with 2:1 AV [facility] conduction-Nonspecific intraventricular block-Nonspecific T wave abnormality-Abnormal ECG-No previous ECGs available- Performing Organization Address City/[facility]/[employer] Phone Number [facility] [address] [place] [address] Estimated GFR (09/07/2017 2:45 PM CDT) GFR Non Af Amer 50 (A) mL/min/1.73 m2 [facility] DEPARTMENT OF PATHOLOGY AND GENOMIC MEDICINE GFR Af Amer 61 mL/min/1.73 m2 [facility] DEPARTMENT OF Comment: PATHOLOGY AND GENOMIC Chronic [...] Americans. Specimen Plasma specimen Performing Organization Address [facility] Phone Number [facility] DEPARTMENT OF PATHOLOGY AND [address] [place] [phone] [facility] Partial thromboplastin time, activated (09/07/2017 2:45 PM CDT) PTT 30.8 23.0 - 36.0 sec [facility] DEPARTMENT OF PATHOLOGY Comment: AND [facility] PTT therapeutic range for unfractionated heparin is 61.0-112.0 seconds which corresponds to Anti-Xa 0.3-0.7 U/ml. Specimen Blood Performing Organization Address [facility]/[employer] Phone Number [facility] DEPARTMENT OF PATHOLOGY AND [address] [place] [phone] [facility] Prothrombin time with INR (09/07/2017 2:45 PM CDT) Prothrombin time 15.5 (H) 12.0 - 15.0 sec [facility] DEPARTMENT OF PATHOLOGY AND GENOMIC MEDICINE INR 1.2 [facility] DEPARTMENT OF Comment: PATHOLOGY AND GENOMIC The International Normalized Ratio (INR) is a therapeutic MEDICINE monitoring tool for patients who are stable on oral anticoagulant therapy. An INR of 2.0-3.0 is suggested for deep vein thrombosis/pulmonary embolism. Specimen Blood Performing Organization Address [facility]/[employer] Phone Number [facility] DEPARTMENT OF PATHOLOGY AND [address] [place] [phone] GENOMIC MEDICINE CBC with platelet and differential (09/07/2017 2:45 PM CDT) WBC 17.38 (H) 4.50 - 11.00 k/uL [facility] DEPARTMENT OF PATHOLOGY AND GENOMIC MEDICINE RBC 5.95 (H) 4.20 - 5.50 m/uL [facility] DEPARTMENT OF PATHOLOGY AND GENOMIC MEDICINE HGB 14.2 12.0 - 16.0 g/dL [facility] DEPARTMENT OF PATHOLOGY AND GENOMIC MEDICINE HCT 48.0 (H) 37.0 - 47.0 % [facility] DEPARTMENT OF PATHOLOGY AND GENOMIC MEDICINE MCV 80.7 (L) 82.0 - 100.0 fL [facility] DEPARTMENT OF PATHOLOGY AND GENOMIC MEDICINE MCH 23.9 (L) 27.0 - 34.0 pg [facility] DEPARTMENT OF PATHOLOGY AND GENOMIC MEDICINE MCHC 29.6 (L) 31.0 - 37.0 g/dL [facility] DEPARTMENT OF PATHOLOGY AND GENOMIC MEDICINE RDW - SD 48.2 37.0 - 55.0 fL [facility] DEPARTMENT OF PATHOLOGY AND GENOMIC MEDICINE MPV 11.5 8.8 - 13.2 fL [facility] DEPARTMENT OF PATHOLOGY AND GENOMIC MEDICINE Platelet count 353 150 - 400 k/uL [facility] DEPARTMENT OF PATHOLOGY AND GENOMIC MEDICINE Nucleated RBC 0.00 /100 WBC [facility] DEPARTMENT OF PATHOLOGY AND GENOMIC MEDICINE Neutrophils 81.7 (H) 39.0 - 69.0 % [facility] DEPARTMENT OF PATHOLOGY AND GENOMIC MEDICINE Lymphocytes 11.4 (L) 25.0 - 45.0 % [facility] DEPARTMENT OF PATHOLOGY AND GENOMIC MEDICINE Monocytes 5.0 0.0 - 10.0 % [facility] DEPARTMENT OF PATHOLOGY AND GENOMIC MEDICINE Eosinophils 0.9 0.0 - 5.0 % [facility] DEPARTMENT OF PATHOLOGY AND GENOMIC MEDICINE Basophils 0.5 0.0 - 1.0 % [facility] DEPARTMENT OF PATHOLOGY AND GENOMIC MEDICINE Immature granulocytes 0.5Comment: 0.0 - 1.0 % [facility] DEPARTMENT OF "Immature PATHOLOGY AND GENOMIC granulocytes" MEDICINE (promyelocytes, myelocytes, metamyelocytes) Specimen Blood Performing Organization Address City/State/[employer] Phone Number [facility] DEPARTMENT OF PATHOLOGY AND [address] [place] [address] [facility] Magnesium level (09/07/2017 2:45 PM CDT) Magnesium 1.8 1.6 - 2.4 mg/dL [facility] DEPARTMENT OF PATHOLOGY AND GENOMIC MEDICINE Specimen Plasma specimen Performing Organization Address City/State/[employer] Phone Number [facility] DEPARTMENT OF PATHOLOGY AND [address] [place] [address] [facility] MEDICINE Comprehensive metabolic panel (09/07/2017 2:45 PM CDT) Sodium 140 135 - 148 mEq/L [facility] DEPARTMENT OF PATHOLOGY AND GENOMIC MEDICINE Potassium 4.8 3.5 - 5.0 mEq/L [facility] DEPARTMENT OF PATHOLOGY AND GENOMIC MEDICINE Chloride 96 (L) 98 - 112 mEq/L [facility] DEPARTMENT OF PATHOLOGY AND GENOMIC MEDICINE CO2 27 24 - 31 mEq/L [facility] DEPARTMENT OF PATHOLOGY AND GENOMIC MEDICINE Anion gap 17@ANIO (H) 7 - 15 mEq/L [facility] DEPARTMENT OF PATHOLOGY AND GENOMIC MEDICINE BUN 29 (H) 8 - 23 mg/dL [facility] DEPARTMENT OF PATHOLOGY AND GENOMIC MEDICINE Creatinine 1.1 (H) 0.5 - 0.9 mg/dL [facility] DEPARTMENT OF PATHOLOGY AND GENOMIC MEDICINE Glucose 181 (H) 65 - 99 mg/dL [facility] DEPARTMENT OF PATHOLOGY AND GENOMIC MEDICINE Calcium 11.1 (H) 8.8 - 10.2 mg/dL [facility] DEPARTMENT OF PATHOLOGY AND GENOMIC MEDICINE Protein 7.8 6.3 - 8.3 g/dL [facility] DEPARTMENT OF Comment: PATHOLOGY AND GENOMIC 4.6-7.0 g/dL MEDICINE 1 week 4.4-7.6 g/dL 7 months-1year5.1-7.3 g/dL 1-2 years5.6-7.5 g/dL >3 years6.0-8.0 g/dL 18-150 6.3-8.3 g/dL Albumin 3.8 3.5 - 5.0 g/dL [facility] DEPARTMENT OF PATHOLOGY AND GENOMIC MEDICINE A/G ratio 1.0 0.7 - 3.8 [facility] DEPARTMENT OF PATHOLOGY AND GENOMIC MEDICINE Alkaline phosphatase 96 35 - 104 U/L [facility] DEPARTMENT OF PATHOLOGY AND GENOMIC MEDICINE AST 19 10 - 35 U/L [facility] DEPARTMENT OF PATHOLOGY AND GENOMIC MEDICINE ALT 20 5 - 50 U/L [facility] DEPARTMENT OF PATHOLOGY AND GENOMIC MEDICINE Total bilirubin 0.4 0.0 - 1.2 mg/dL [facility] DEPARTMENT OF PATHOLOGY AND GENOMIC MEDICINE Specimen Plasma specimen Performing Organization Address City/[facility]/Zipcode Phone Number [facility] DEPARTMENT OF PATHOLOGY AND [address] [place] [address] [facility] MEDICINE after 01/29/2017 Insurance Payer Benefit Plan / Group Subscriber ID Type Phone Address MEDICARE MEDICARE PART A AND B xxxxxxxxxx Medicare [place], [place] MEDICA[place] MEDICAID xxxxxxxxx Medicaid Advance Directives Patient has advance care planning documents on file. For more information, please contact:Abel Thompson[address] [place] [address]
--- OUTSIDE RECORDS SUMMARY | 2018-01-30 14:04 | XMS REPORT ---
[...] Problem Vitamin D deficiency E55.9 Active Problem correction current use of systemic Z79.52 Active steroids [...] End Status Dosage System Date Date Atorvastatin [facility] 10447166163 10 MG Orally Active 1 tablet Calcium Once a day Results No Known Results Summary Purpose [employer] Submission
--- OUTSIDE RECORDS SUMMARY | 2018-01-30 14:04 | XMS REPORT ---
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
--- OUTSIDE RECORDS SUMMARY | 2018-01-30 14:04 | XMS REPORT ---
[...] Problem Vitamin D deficiency E55.9 Active Problem half-way current use of systemic Z79.52 Active steroids [...]
--- OUTSIDE RECORDS SUMMARY | 2018-01-30 14:04 | XMS REPORT ---
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 [id number] - True metrix Apr 08, Active as directed Blood Glucose twice a day 2017 Test Results No Known Results Summary Purpose [employer] Submission
--- OUTSIDE RECORDS SUMMARY | 2018-01-30 14:04 | XMS REPORT ---
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
--- OUTSIDE RECORDS SUMMARY | 2018-01-30 14:04 | XMS REPORT ---
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
--- OUTSIDE RECORDS SUMMARY | 2018-01-30 14:04 | XMS REPORT ---
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
--- OUTSIDE RECORDS SUMMARY | 2018-01-30 14:04 | XMS REPORT ---
[...] Problem Vitamin D deficiency E55.9 Active Problem senior living current use of systemic Z79.52 Active steroids [...] Dosage System Date Date Promethazine HCl ND 01901992006 6.25 MG/5ML Active 10 ml as Orally every 6 needed hrs Eliquis ND 46856584388 5 MG Orally Active not defined True Metrix [facility] 12674970931 - True metrix Apr 08, Active as directed Blood Glucose twice a day [address] [facility] 38273943460 50 MG Orally Active 1 capsule Twice a day Ambien [facility] 14089208929 5 MG Orally Active 1 tablet at Once a day bedtime Carvedilol [facility] 73350191237 3.125 MG Orally Mar 19, Active as directed take twice a 2017 day Prednisone ND 23945734461 10 MG Orally Active 1 tablet Twice a day Multaq [facility] 79614302714 400 MG Orally Active 1 tablet Twice a day with meals Atorvastatin [facility] 27184452227 10 MG Orally Active 1 tablet Calcium Once a day Ventolin HFA [facility] 45657305111 108 (90 Base) Active 2 puffs as MCG/ACT needed Inhalation every [address] [facility] 90898052013 25 MG Orally Active not defined Pantoprazole [facility] 51666306482 40 MG Orally Active 1 tablet Sodium Once a day Albuterol [facility] 28696021415 (2.5 MG/3ML) Active 3 ml as Sulfate 0.083% needed Inhalation Three times a day Vitamin D3 [facility] 15960934670 2000 UNIT Active 1 capsule Orally Once a day Duloxetine HCl [facility] 14237927864 60 MG Orally Active 1 capsule Once a day Fosamax [facility] 72008009476 70 MG Orally Active 1 tablet Breo Ellipta [facility] 61814700951 100-25 MCG/INH Active 1 puff Inhalation Once a day Glucophage XR [facility] 97523820287 500 MG Orally Active 1 tablet Twice a day with evening meal Results No Known Results Summary Purpose [employer]ClinicalWorks Submission
--- OUTSIDE RECORDS SUMMARY | 2018-01-30 14:04 | XMS REPORT ---
:1955 [facility] Address [address] [place] [address] [address] [place] [address] Care Team Providers Name Role Phone Unavailable Unavailable Unavailable Problems This patient has no known problems. Allergies, Adverse Reactions, Alerts This patient has no known allergies or adverse reactions. Medications This patient has no known medications.
--- OUTSIDE RECORDS SUMMARY | 2018-01-30 14:04 | XMS REPORT ---
[...] Problem Vitamin D deficiency E55.9 Active Problem long-term current use of systemic Z79.52 Active steroids [...]
--- OUTSIDE RECORDS SUMMARY | 2018-01-30 14:04 | XMS REPORT ---
[...] Problem Vitamin D deficiency E55.9 Active Problem [facility] current use of systemic Z79.52 Active steroids [...] End Status Dosage System Date Date Atorvastatin [facility] 16604578879 10 MG Orally Active 1 tablet Calcium Once a day Results No Known Results Summary Purpose [employer] Submission
--- NOTE | 2018-01-30 15:17 | RAD REPORT ---
EXAM DESCRIPTION: RAD - Hip Left 2 View - 01/30/2018 3:05 pm CLINICAL HISTORY: Left hip pain status post injury FINDINGS: No fracture or dislocation is seen. The bones are osteoporotic. If the patient continues have symptoms to suggest an occult fracture MRI would be recommended
--- NOTE | 2018-01-30 15:39 | EDPHYS ---
Physician Documentation [facility] Name: Christa Vidal Age: 62 yrs Sex: Female : 1955 Arrival Date: 01/30/2018 Time: 14:05 Bed 6 Private MD: ED Physician Jeff Kidd HPI: 01/30 14:39 This 62 yrs old Female presents to ER via Ambulatory with complaints of Hip ps1 Pain. 14:39 patient fell a week ago and his been ambulatory since. She ambulated in the ED today. ps1 She states that she has pain described as muscle spasm in the left leg and hip. She rates the pain as moderate and worse with movement and course is getting progressively worse over the last couple of days. . Historical: - Allergies: 14:13 Codeine; hb 14:13 Ibuprofen; hb 14:13 Sulfa (Sulfonamide Antibiotics); hb - Home Meds: 14:40 albuterol sulfate 2.5 mg /3 mL (0.083 %) Inhl nebu 3 mL 2 times per day [Active]; aa5 alendronate sodium-cholecalciferol(vitamin D3) 70 mg Oral once wkly [Active]; amiodarone 200 mg Oral tab 2 times per day [Active]; atorvastatin 10 mg Oral tab 1 tab once daily [Active]; Breo Ellipta 100-25 mcg/dose inhalation dsdv 1 puff once daily [Active]; duloxetine 60 mg Oral cpDR [Active]; Eliquis 5 mg Oral tab 1 tab 2 times per day [Active]; Incruse Ellipta 62.5 mcg/actuation inhalation dsdv 1 puff once daily [Active]; Januvia 25 mg Oral tab daily [Active]; lutein-zeaxanthin Oral [Active]; metformin 500 mg Oral Tb24 once daily [Active]; prednisone 10 mg Oral tab 1 tab 2 times per day [Active]; promethazine 6.25 mg/5 mL Oral syrp 5 mL 2 times per day [Active]; Restasis 0.05 % ophthalmic dpet 1 drop 2 times per day [Active]; trimethoprim 100 mg Oral tab 1 tab once daily [Active]; Ventolin HFA 90 mcg/actuation Nebulizer HFAA 2 puffs every 6 hours [Active]; zolpidem 5 mg Oral tab 1 tab once daily [Active]; - PMHx: 14:40 AAA; COPD; Degenerative disc disease; Depression; Diabetes - NIDDM; GERD; Hernia; aa5 Hypertension; Osteoporosis; PE; DVT; - Immunization history:: Adult Immunizations up to date. - Social history:: Smoking status: Patient/guardian denies using tobacco. - Ebola Screening: : No symptoms or risks identified at this time. ROS: 14:39 Constitutional: Negative for fever, chills, and weight loss, Eyes: Negative for injury, ps1 pain, redness, and discharge, Cardiovascular: Negative for chest pain, palpitations, and edema, Respiratory: Negative for shortness of breath, cough, wheezing, and pleuritic chest pain, Abdomen/GI: Negative for abdominal pain, nausea, vomiting, diarrhea, and constipation, Back: Negative for injury and pain, Skin: Negative for injury, rash, and discoloration, Neuro: Negative for headache, weakness, numbness, tingling, and seizure. 14:39 MS/extremity: Positive for pain, of the left hip. Exam: 14:39 Constitutional: This is a well developed, well nourished patient who is awake, alert, ps1 and in no acute distress. Head/Face: Normocephalic, atraumatic. Chest/axilla: Normal chest wall appearance and motion. Nontender with no deformity. No lesions are appreciated. Cardiovascular: Regular rate and rhythm. No gallops, murmurs, or rubs. Normal PMI, no JVD. No pulse deficits. Respiratory: Lungs have equal breath sounds bilaterally, clear to auscultation and percussion. No rales, rhonchi or wheezes noted. No increased work of breathing, no retractions or nasal flaring. Skin: Warm, dry with normal turgor. Normal color with no rashes, no lesions, and no evidence of cellulitis. Neuro: Awake and alert, GCS 15, oriented to person, place, time, and situation. Cranial nerves II-XII grossly intact. Sensory grossly intact. Psych: Awake, alert, with orientation to person, place and time. Behavior, mood, and affect are within normal limits. 14:39 Abdomen/GI: Inspection: large abdominal hernia, Bowel sounds: normal, Palpation: abdomen is soft and non-tender. 14:39 Musculoskeletal/extremity: Extremities: grossly normal except: noted in the left hip: Vital Signs: 14:12 BP 131 / 80; Pulse 66; Resp 16; Temp 98.4; Pulse Ox 100% on R/A; Pain 10/10; hb MDM: 15:01 Patient medically screened. ps1 01/30 14:32 Order name: Hip Left 2 View XRAY; Complete Time: 15:18 ps1 Administered Medications: No medications were administered Disposition: 01/30/18 15:38 Discharged to Home. Impression: Left hip pain. - Condition is Stable. - Discharge Instructions: Musculoskeletal Pain. - Prescriptions for Robaxin 500 mg Oral Tablet - take 2 tablet by ORAL route every 6 hours As needed; 40 tablet. Tramadol 50 mg Oral Tablet - take 1 tablet by ORAL route every 8 hours as needed; 12 tablet. - Medication Reconciliation Form, Thank You Letter, Antibiotic Education, Prescription Opioid Use form. - Follow up: Private Physician; When: As needed; Reason: Further diagnostic work-up, Recheck today's complaints, Re-evaluation by your physician. Follow up: Emergency Department; When: As needed; Reason: Worsening of condition. - Problem is an ongoing problem. - Symptoms are unchanged. Signatures: Dispatcher [employer] EDCO Ana Rosa Sousa RN RN aa5 Zita Raymond RN RN Jeff Kidd MD MD ps1 Corrections: (The following items were deleted from the chart) 16:11 15:38 01/30/2018 15:38 Discharged to Home. Impression: Left hip pain. Condition is aa5 Stable. Forms are Medication Reconciliation Form, Thank You Letter, Antibiotic Education, Prescription Opioid Use. Follow up: Private Physician; When: As needed; Reason: Further diagnostic work-up, Recheck today's complaints, Re-evaluation by your physician. Follow up: Emergency Department; When: As needed; Reason: Worsening of condition. Problem is an ongoing problem. Symptoms are unchanged. ps1
--- NOTE | 2018-01-30 15:39 | ER ---
Nurse's Notes [facility] Name: Christa Vidal Age: 62 yrs Sex: Female : 1955 Arrival Date: 01/30/2018 Time: 14:05 Bed 6 Private MD: Diagnosis: Left hip pain Presentation: 01/30 14:10 Presenting complaint: Left hip pain after after she fell out of bed 3 days ago, then hb slipped on wet floor and landed on left side 2 days ago. Denies other injuries. Negative LOC. Transition of care: patient was not received from another setting of care. Onset of symptoms was January 30, 2018. Risk Assessment: Do you want to hurt yourself or someone else? Patient reports no desire to harm self or others. Care prior to arrival: None. 14:10 Method Of Arrival: Ambulatory hb 14:10 Acuity: NATHANIEL 4 hb 14:30 Initial Sepsis Screen: Does the patient meet any 2 criteria? No. Patient's initial aa5 sepsis screen is negative. Does the patient have a suspected source of infection? No. Patient's initial sepsis screen is negative. Historical: - Allergies: 14:13 Codeine; hb 14:13 Ibuprofen; hb 14:13 Sulfa (Sulfonamide Antibiotics); hb - Home Meds: 14:40 albuterol sulfate 2.5 mg /3 mL (0.083 %) Inhl nebu 3 mL 2 times per day [Active]; aa5 alendronate sodium-cholecalciferol(vitamin D3) 70 mg Oral once wkly [Active]; amiodarone 200 mg Oral tab 2 times per day [Active]; atorvastatin 10 mg Oral tab 1 tab once daily [Active]; Breo Ellipta 100-25 mcg/dose inhalation dsdv 1 puff once daily [Active]; duloxetine 60 mg Oral cpDR [Active]; Eliquis 5 mg Oral tab 1 tab 2 times per day [Active]; Incruse Ellipta 62.5 mcg/actuation inhalation dsdv 1 puff once daily [Active]; Januvia 25 mg Oral tab daily [Active]; lutein-zeaxanthin Oral [Active]; metformin 500 mg Oral Tb24 once daily [Active]; prednisone 10 mg Oral tab 1 tab 2 times per day [Active]; promethazine 6.25 mg/5 mL Oral syrp 5 mL 2 times per day [Active]; Restasis 0.05 % ophthalmic dpet 1 drop 2 times per day [Active]; trimethoprim 100 mg Oral tab 1 tab once daily [Active]; Ventolin HFA 90 mcg/actuation Nebulizer HFAA 2 puffs every 6 hours [Active]; zolpidem 5 mg Oral tab 1 tab once daily [Active]; - PMHx: 14:40 AAA; COPD; Degenerative disc disease; Depression; Diabetes - NIDDM; GERD; Hernia; aa5 Hypertension; Osteoporosis; PE; DVT; - Immunization history:: Adult Immunizations up to date. - Social history:: Smoking status: Patient/guardian denies using tobacco. - Ebola Screening: : No symptoms or risks identified at this time. Screenin:30 Abuse screen: Denies threats or abuse. Nutritional screening: No deficits noted. aa5 Tuberculosis screening: No symptoms or risk factors identified. Fall Risk Fall in past 12 months (25 points). No secondary diagnosis (0 pts). No IV (0 pts). Ambulatory Aid- None/Bed Rest/Nurse Assist (0 pts). Gait- Normal/Bed Rest/Wheelchair (0 pts) Mental Status- Oriented to own ability (0 pts). Total Villarreal Fall Scale indicates Low Risk Score (25-44 pts). Fall prevention measures have been instituted. Side Rails Up X 2. Assessment: 14:30 General: Appears comfortable, Behavior is calm, cooperative. Pain: Complains of pain in aa5 left hip Pain does not radiate. Pain currently is 10 out of 10 on a pain scale. Quality of pain is described as sharp, tender, Pain began 1 week ago Is continuous, Aggravated by increased activity, weight bearing. Neuro: Level of Consciousness is awake, alert, obeys commands, Oriented to person, place, time, situation. Cardiovascular: Edema is 1+ to to jose cruz lower extremities. Respiratory: Airway is patent Respiratory effort is even, unlabored, Respiratory pattern is regular, symmetrical. GI: No signs and/or symptoms were reported involving the gastrointestinal system. : No signs and/or symptoms were reported regarding the genitourinary system. EENT: No signs and/or symptoms were reported regarding the EENT system. Derm: Skin is pink, warm \\T\\ dry. Musculoskeletal: Reports pain in left hip. Injury Description: Pt states "I was sitting on a mattress and my son sat on the other end of it so I fell to the floor onto my left hip", pt reports fall occurred approximately 1 week ago and reports falling from approximately 2-3 feet. Pt also reports slipped and fell onto buttocks approximately 4-5 days ago. Pt denies LOC, denies head injury. 15:10 Reassessment: Patient is alert, oriented x 3, equal unlabored respirations, skin aa5 warm/dry/pink. Awaiting X-ray results. . 16:05 Reassessment: Patient is alert, oriented x 3, equal unlabored respirations, skin aa5 warm/dry/pink. Vital Signs: 14:12 BP 131 / 80; Pulse 66; Resp 16; Temp 98.4; Pulse Ox 100% on R/A; Pain 10/10; hb ED Course: 14:05 Patient arrived in ED. mr 14:05 John Persaud DO is Private Physician. mr 14:12 Triage completed. hb 14:13 Arm band placed on right wrist. hb 14:27 Ana Rosa Sousa, BILLIE is Primary Nurse. aa5 14:28 Jeff Kidd MD is Attending Physician. ps1 14:30 Patient has correct armband on for positive identification. Bed in low position. Call aa5 light in reach. Side rails up X 1. 15:04 X-ray completed. Portable x-ray completed in exam room. Patient tolerated procedure tm4 well. 15:05 Hip Left 2 View XRAY In Process Unspecified. EDMS 15:05 No provider procedures requiring assistance completed. aa5 16:05 Patient did not have IV access during this emergency room visit. aa5 Administered Medications: No medications were administered Outcome: 15:38 Discharge ordered by . ps1 16:05 Discharged to home ambulatory. aa5 16:05 Condition: stable 16:05 Discharge instructions given to patient, Instructed on discharge instructions, follow up and referral plans. medication usage, Demonstrated understanding of instructions, follow-up care, medications, Prescriptions given X 2. 16:11 Patient left the ED. aa5 Signatures: Dispatcher [employer] EDSD Cnadelaria Dela Cruz Tracy tm4 Ana Rosa Sousa RN RN aa5 Zita Raymond RN RN Jeff Kidd MD MD ps1
[2018-01-30 16:17] VITALS: BP 131/80; TEMP 98.4; O2SAT 100
== END 2018-01-30 16:11 | disposition home or self-care (01) ==
LOC: ER 14:00
DX: M25.552 Pain in left hip (principal); I71.4 Abdominal aortic aneurysm, without rupture; J44.9 Chronic obstructive pulmonary disease, unspecified; E11.9 Type 2 diabetes mellitus without complications; K21.9 Gastro-esophageal reflux disease without esophagitis; K44.9 Diaphragmatic hernia without obstruction or gangrene; I10 Essential (primary) hypertension; M81.0 Age-related osteoporosis without current pathological fracture; Z79.84 Long term (current) use of oral hypoglycemic drugs; Z79.899 Other long term (current) drug therapy; Z86.718 Personal history of other venous thrombosis and embolism; Z86.711 Personal history of pulmonary embolism
CPT/HCPCS: 99283